=== PATIENT | female | born 1970 | race African-American/Black ===

== ENCOUNTER 2017-08-29 07:16 | Day surgery (SDC) | payer SELFPAY ==
[2017-08-29 07:29] LABS: Specific Gravity 1.025 (1.005-1.030)
[2017-08-29] MEDS ORDERED: CEFAZOLIN/SWI 1gm 1 GM/10 ML SYR ONE (07:48)
[2017-08-29] MEDS ORDERED: Ringers Lactate 1,000 ML IV ONE ×2 (07:48→09:48)
[2017-08-29] MEDS ORDERED: BUPIVACA 0.25%/EPI 0.0005%/PF 30 ML VIAL ONE (08:17)
[2017-08-29] MEDS ORDERED: LIDOCAINE 2% MPF 5 ML VIAL ONE (08:55)
[2017-08-29] MEDS ORDERED: PROPOFOL 200 MG/20 ML VIAL IV ONE (08:55)
[2017-08-29] MEDS ORDERED: MIDAZOLAM HCL 2 MG/2 ML INJ ONE (08:55)
[2017-08-29] MEDS ORDERED: DIPHENHYDRAMINE 50 MG/ML VIAL ONE (08:55)
[2017-08-29] MEDS ORDERED: KETOROLAC 30 MG/ML INJ ONE (08:55)
[2017-08-29] MEDS ORDERED: DEXAMETHASONE 10 MG/ML VIAL ONE (08:55)
[2017-08-29] MEDS ORDERED: ONDANSETRON 4 MG/2 ML VIAL ONE ×2 (08:55→14:02)
[2017-08-29] MEDS ORDERED: ROCURONIUM 50 MG/5 ML VIAL IV ONE (08:55)
[2017-08-29] MEDS ORDERED: FENTANYL CITR 100 MCG/2 ML ONE (08:55)
--- NOTE | 2017-08-29 10:03 | P.OP ---
Calender Roll Operator: ASCENCION YOUNG Preoperative diagnosis: Recurrent Ventral Hernia Postoperative diagnosis: Recurrent Ventral Hernia Primary procedure: Laparoscopic Ventral Hernia Repair with Mesh Anesthesia: GETA + Local Estimated blood loss: <20cc Specimen: None Findings: 8cm x 7cm hernia with ometum entrapped Complications: None Transferred to: Recovery Room Condition: Good
[2017-08-29] MEDS: MEPERIDINE HCL 50 MG/ML AMP ONE ×2 (10:08→10:13)
[2017-08-29] MEDS ORDERED: GLYCOPYRROLATE 0.2 MG/ML SYR ONE (10:12)
[2017-08-29] MEDS ORDERED: NEOSTIGMINE 1 MG/ML -5 ML SYRINGE ONE (10:15)
[2017-08-29] MEDS: MIDAZOLAM HCL 2 MG/2 ML INJ ONE ×2 (10:35→10:53)
[2017-08-29] MEDS ORDERED: MEPERIDINE HCL 25 MG/0.5 ML ONE ×2 (10:39→11:08)
[2017-08-29] MEDS ORDERED: HYDROCODONE/APAP 5/325 MG TAB ONE (14:02)
[2017-08-29 14:32] VITALS: BP 130/82; TEMP 99; O2SAT 98
--- NOTE | 2017-08-29 21:18 | OP ---
Date of Procedure: 08/29/2017 Surgeon: Dalton Perrin MD, Refinery Operator Light Ends Recovery: Kerline Ferguson. Preoperative Diagnosis: Recurrent ventral hernia, midline incisional type. Postoperative Diagnosis: Recurrent ventral hernia, midline incisional type. Procedure Performed: Laparoscopic ventral hernia repair with mesh. Anesthesia: General endotracheal plus local with 0.25% Marcaine. Estimated Blood Loss: 20 cc. Specimen: None. Findings: Approximately 8 cm x 7 cm hernia complex hernia defect, [place] cheese appearance with oment um entrapped, both superior and inferior to the umbilicus. Complications: None. Disposition: Transferred to recovery room in good condition. Procedure In Detail: After informed consent was obtained, the patient was brought to the operating r oom, prepped and draped in the usual sterile fashion. After adequate anesthesia was achieved, a left lateral quadrant incision was made after appropriately anesthetizing the skin. And a 5-mm, 0-degree optical trocar was introduced into the abdomen without evidence of complication. Insufflation was ob tained to 15 mmHg. At this time, there was no injury to vital structures upon entering into the abdo men. Additional trocar site was chosen in the left upper quadrant. This was similarly anesthetized and sharply incised and a 5-mm trocar was introduced in the abdomen without evidence of complication. The left lateral quadrant incision was then extended slightly and a 12-mm trocar was exchanged unde r direct visualization without evidence of complication. A LigaSure device was then used to take vickie n significant adhesions, which were present over the anterior abdominal wall. After completely mobil izing these adhesions, I did an extensive adhesiolysis for approximately 45 minutes. I placed an add itional trocar which was a 5 mm trocar, in the suprapubic region after appropriately anesthetizing th e skin. It was placed without evidence of complication. I then proceeded to take the omental attach ments out of the hernia sac using a hand over hand pass method until omental tissue was removed in it s entirety and ligated using the LigaSure device. No additional omental tissue was left within the h ernia sac and there was no evidence of bleeding at the end of the procedure in the omentum. After this was performed, I sized the mesh appropriately and opted for an approximately 16 cm round B amelia Ventralight ST mesh with Echo positioning System, which was placed through the lateral port and t hen positioned using a Laith-Auige suture passer to allow for minimal 5 cm of underlay circumfere ntially around. After this was positioned appropriately, the absorbable fixation system was used to secure this circumferentially around and the balloon system was then removed and passed out through t he lateral trocar. I then secured a double crown type fixation to the anterior abdominal wall using the absorbable fixation device with good approximation of the tissues. I then desufflated the abdome n and found the mesh to be in good position. I then removed the 12 mm trocar and closed the port usi ng a Laith-Augie suture passer with 0 Vicryl in an interrupted fashion with good approximation of tissues. I then completely desufflated the abdomen under direct visualization and removed all troca rs. All incisions were then copiously irrigated and closed with a 4-0 Monocryl in a running fashion. Dermabond was placed over the top. The patient tolerated the procedure well without evidence of co mplication and transferred to the PACU in good condition. All counts were correct at the end of the case. NICHOLE/BRAXTON Voice ID: [id number] Report ID: [id number]
== END 2017-08-29 16:30 | disposition home or self-care (01) ==
LOC: OR 07:16
PROVIDERS: ATTEND Surgery
PROC: 0DNW4ZZ Release Peritoneum, Percutaneous Endoscopic Approach (ICD-10-PCS; 2017-08-29)
PROC: 0WUF4JZ Supplement Abdominal Wall with Synthetic Substitute, Percutaneous Endoscopic Approach (ICD-10-PCS; principal; 2017-08-29 08:30)
DX: K43.2 Incisional hernia without obstruction or gangrene (principal); K66.0 Peritoneal adhesions (postprocedural) (postinfection); F17.210 Nicotine dependence, cigarettes, uncomplicated
CPT/HCPCS: 81025; J0690; J1100; J2175; J2250; J2405; J2710; J3010

== ENCOUNTER 2017-08-30 15:05 | Observation (INO) | payer SELFPAY ==
[2017-08-30 16:00] LABS: Absolute Lymphocytes (CBC) 2.2 K/uL (0.7-4.9); Absolute Monocytes 1.1 K/uL (0.1-1.3); Absolute Neutrophil 6.7 K/uL (1.8-8.0); Basophils % 0.6 % (0-1.3); Eosinophils % 0.7 % (0-4.4); Hematocrit 36.2 % (36.0-45.0); Lymphocytes % 21.3 % (15.3-44.8); MCV 84.4 fL (80-100); MPV 8.5 fL (7.6-11.3); Monocytes % 10.8 % (3.3-12.3); RBC Red Blood Cell Count 4.29 M/uL (3.86-4.86)
[2017-08-30] MEDS ORDERED: NA CHLORIDE 0.9% 1,000 ML ONE (16:14)
[2017-08-30] MEDS ORDERED: FAMOTIDINE 20 MG/2 ML VIAL IV ONE (16:14)
[2017-08-30] MEDS ORDERED: MORPHINE 4 MG/ML SYR ONE (16:14)
[2017-08-30] MEDS ORDERED: ONDANSETRON 4 MG/2 ML VIAL ONE (16:14)
[2017-08-30 16:18] LABS: Glomerular Filtration Rate > 60 mL/min (>60)
[2017-08-30 16:20] LABS: Potassium 3.3 mEq/L (3.6-5.0)
[2017-08-30 16:26] LABS: Albumin 3.6 g/dL (3.2-5.5); Bilirubin Direct 0.1 mg/dL (0-0.2); Protein, Total 7.7 g/dL (6.0-8.3)
--- NOTE | 2017-08-30 16:28 | RAD REPORT ---
EXAM DESCRIPTION: RAD - Chest Single View - 08/30/2017 4:16 pm CLINICAL HISTORY: Cough COMPARISON: None. FINDINGS: Portable technique limits examination quality. Mild bilateral pulmonary opacities are noted, likely representing pulmonary edema. Pneumonia is a les s likely consideration. The heart is normal in size. No displaced fractures.
[2017-08-30 16:40] LABS: Bilirubin Total 0.5 mg/dL (0.3-1.2)
--- NOTE | 2017-08-30 18:24 | EKG ---
Test Date: 2017-08-30 Test Time: 17:33:16 Air Quality Consultant: MARI MEASUREMENT RESULTS: Intervals: Rate: 82 AR: 130 QRSD: 90 QT: 368 QTc: 429 [place]: P: 62 AR: 130 QRS: 54 T: 26 INTERPRETIVE STATEMENTS: Normal sinus rhythm Minimal voltage criteria for LVH, may be normal variant Nonspecific ST and T wave abnormality Abnormal ECG No previous ECG available for comparison Electronically Signed On 08-30-17 18:23:51 CDT by Reji Ugarte
--- NOTE | 2017-08-30 18:24 | EDPHYS ---
Physician Documentation [facility] Name: Jason House Age: 47 yrs Sex: Female : 1970 Arrival Date: 08/30/2017 Time: 15:17 Bed 13 Private MD: ED Physician Gabriel Cisse HPI: 08/30 15:38 This 47 yrs old Black Female presents to ER via EMS with complaints of Hernia repair cp site pain. 15:38 The patient presents with abdominal pain that is diffuse. cp 15:38 Onset: The symptoms/episode began/occurred today. The symptoms do not radiate. cp Associated signs and symptoms: Pertinent positives: nausea, Pertinent negatives: anorexia, blood in stools, chest pain, constipation, diarrhea, dysuria, fever, vomiting. The symptoms are described as constant. Modifying factors: the symptoms are aggravated by pressure. Patient reports having hernia repair surgery by DR Perrin yesterday. OPERATION SPECIALIST: 15:22 LMP 08/18/2017 jl7 Historical: - Allergies: 15:22 No Known Allergies; jl7 - Home Meds: 15:22 [place] 5-325 mg Oral tab [Active]; jl7 - PMHx: 15:22 None; jl7 - PSHx: 15:22 Hernia repair; jl7 - Immunization history:: Adult Immunizations not up to date. - Social history:: Smoking status: Patient uses tobacco products, smokes one-half pack cigarettes per day, Patient uses alcohol, only on a social basis. street drugs, marijuana. ROS: 15:43 Constitutional: Positive for poor PO intake, Negative for body aches, chills, fever. cp 15:43 Eyes: Negative for injury, pain, redness, and discharge. cp 15:43 ENT: Negative for drainage from ear(s), ear pain, sore throat, difficulty swallowing, difficulty handling secretions. 15:43 Cardiovascular: Negative for chest pain, edema, palpitations. 15:43 Respiratory: Positive for cough, Negative for shortness of breath, wheezing. 15:43 Abdomen/GI: Positive for abdominal pain, nausea, Negative for vomiting, diarrhea, constipation, black/tarry stool, rectal bleeding. 15:43 Back: Negative for pain at rest, pain with movement, radiated pain. 15:43 Skin: Negative for cellulitis, rash. 15:43 Neuro: Negative for altered mental status, headache, weakness. 15:43 All other systems are negative. Exam: 15:50 Constitutional: The patient appears in no acute distress, alert, awake, non-toxic, well cp developed, well nourished, uncomfortable. 15:50 Head/Face: Normocephalic, atraumatic. cp 15:50 Eyes: Periorbital structures: appear normal, Pupils: equal, round, and reactive to light and accomodation, Extraocular movements: intact throughout, Conjunctiva: normal, no exudate, no injection, Sclera: no appreciated abnormality, Lids and lashes: appear normal, bilaterally. 15:50 ENT: External ear(s): are unremarkable, Ear canal(s): are normal, clear, TM's: dullness, bilaterally, Nose: is normal, Mouth: Lips: dry, Oral mucosa: dry, Posterior pharynx: Airway: no evidence of obstruction, patent, Uvula: midline, swelling, is not appreciated, erythema, is not appreciated, exudate, is not appreciated, Voice: is normal. 15:50 Neck: ROM/movement: is normal, is supple, without pain, no range of motions limitations, no nuchal rigidity. 15:50 Chest/axilla: Inspection: normal, Palpation: is normal, no crepitus, no tenderness. 15:50 Cardiovascular: Rate: normal, Rhythm: regular, Edema: is not appreciated, JVD: is not appreciated. 15:50 Respiratory: the patient does not display signs of respiratory distress, Respirations: normal, no use of accessory muscles, no retractions, no splinting, no tachypnea, labored breathing, is not present, Breath sounds: are clear throughout, no decreased breath sounds, no stridor, no wheezing. 15:50 Abdomen/GI: Inspection: obese Bowel sounds: active, all quadrants, Palpation: soft, in all quadrants, severe abdominal tenderness, in all quadrants, rebound tenderness, is not appreciated, voluntary guarding, is elicited in all quadrants. 15:50 Back: pain, is absent, ROM is normal. 15:50 Musculoskeletal/extremity: Exam is negative for calf tenderness, decreased range of motion, injury. 15:50 Skin: cellulitis, is not appreciated, no rash present. 15:50 Neuro: Orientation: to person, place \T\ time. Mentation: lucid, able to follow commands, Cerebellar function: is grossly normal, Motor: moves all fours, strength is normal, Sensation: is normal. 17:38 ECG was reviewed by the Attending Physician. Vital Signs: 15:22 BP 126 / 81; Pulse 88; Resp 16 S; Temp 99.8(O); Pulse Ox 94% on R/A; Weight 90.72 kg jl7 (R); Height 5 ft. 3 in. (160.02 cm) (R); Pain 10/10; 15:27 BP 127 / 77; Pulse 94; Resp 18; Pulse Ox 97% on 2 lpm NC; jl7 16:47 BP 119 / 78; Pulse 72; Resp 16; Pulse Ox 100% on 2 lpm NC; 5 17:45 BP 107 / 81; Pulse 79; Resp 16 S; Pulse Ox 99% on R/A; jl7 19:14 BP 113 / 79; Pulse 83; Resp 18; Pulse Ox 96% on R/A; aa1 20:30 BP 117 / 73; Pulse 79; Resp 18; Temp 98.8(TE); Pulse Ox 98% on R/A; Pain 0/10; aa1 15:22 Body Mass Index 35.43 (90.72 kg, 160.02 cm) 7 MDM: 15:23 Patient medically screened. 16:28 Physician consultation: Dalton Perrin MD was called at 16:28, was contacted at 16:28, regarding patient's condition, if pain can be controlled patient may be discharged to home, otherwise admit with consult to DR Hatch for pain control. 18:30 Data reviewed: vital signs, nurses notes, lab test result(s). 18:32 Physician consultation: Shaggy Hatch MD was contacted at 18:25, regarding admission, to the telemetry unit. patient's condition, wants morphine 4 mg q 2 hrs, [place] 7.5 mg q 4 hrs prn breakthrough pain and Zofran 4 mg q 6 hrs. 08/30 15:22 Order name: Amylase, Serum; Complete Time: 16:50 08/30 15:22 Order name: Basic Metabolic Panel; Complete Time: 16:50 08/30 16:50 Interpretation: Normal except: K 3.3; GFR 88. 08/30 15:22 Order name: CBC with Diff; Complete Time: 16:07 cp 04/ 16:07 Interpretation: Normal except: HGB 11.6; RDW 16.0. cp 04/ 15:22 Order name: Creatinine for Radiology; Complete Time: 16:23 cp 04/ 16:23 Interpretation: Reviewed. cp 04 15:22 Order name: Hepatic Function; Complete Time: 16:50 cp 04/ 16:51 Interpretation: Normal except: GLOB 4.1; A/G 0.9. cp 04 15:22 Order name: Lipase; Complete Time: 16:50 cp 04/ 16:23 Interpretation: LIP 17; Reviewed. cp 04 15:22 Order name: Urine Microscopic Only cp 08/30 16:31 Order name: BNP cp 08/30 18:32 Order name: Basic Metabolic Panel EDMS 08/30 18:32 Order name: Basic Metabolic Panel EDMS 08/30 18:32 Order name: CBC with Automated Diff EDMS 08/30 18:32 Order name: CBC with Automated Diff EDMS 08/30 18:32 Order name: Lipase EDMS 08/30 18:32 Order name: Lipase EDMS 08/30 16:01 Order name: CXR XRAY; Complete Time: 16:30 cp 08/30 16:31 Order name: EKG; Complete Time: 16:31 cp 08/30 18:32 Order name: Liver (Hepatic) Function EDMS 08/30 18:32 Order name: Liver (Hepatic) Function EDMS 08/30 18:35 Order name: Diet - Advance as Tolerated EDMS 08/30 18:54 Order name: Urine Dipstick--Ancillary (enter results) ag 08/30 18:54 Order name: Urine --Ancillary (enter results) ag 08/30 19:08 Order name: Urine --Ancillary EDMS 08/30 19:08 Order name: Urine Dipstick-Ancillary EDMS 08/30 15:22 Order name: Urine Test (obtain specimen); Complete Time: 19:04 cp 08/30 15:22 Order name: IV Saline Lock; Complete Time: 18:24 cp 08/30 15:22 Order name: Labs collected and sent; Complete Time: 18:24 cp 08/30 15:22 Order name: Urine Dipstick-Ancillary (obtain specimen); Complete Time: 19:04 cp 08/30 16:31 Order name: EKG - Nurse/Tech; Complete Time: 18:19 cp EC:38 Rate is 82 beats/min. Rhythm is regular. DC interval is normal. QRS interval is normal. cp QT interval is normal. T waves are Inverted in lead III. Interpreted by me. Reviewed by me. Administered Medications: 16:20 Drug: NS 0.9% 1000 ml Route: IV; Rate: 1 bolus; Site: left antecubital; ss 18:17 Follow up: IV Status: Completed infusion jl7 16:22 Drug: Zofran 4 mg Route: IVP; Site: left antecubital; ss 18:17 Follow up: Response: No adverse reaction jl7 16:25 Drug: morphine 4 mg Route: IVP; Site: left antecubital; ss 18:17 Follow up: Response: No adverse reaction jl7 16:27 Drug: Pepcid 20 mg Route: IVP; Site: left antecubital; ss 18:17 Follow up: Response: No adverse reaction jl7 18:07 Not Given (Physician Discretion): Hydrocodone-Acetaminophen (7.5 mg-325 mg) 1 tabs PO cp once 18:16 Drug: Tylenol #3 (300 mg-30 mg) 2 tabs Route: PO; jl7 19:05 Follow up: Response: No adverse reaction jl7 20:10 Drug: K-Lyte Effervescent Tablet 25 mEq Route: PO; aa1 20:39 Follow up: Response: No adverse reaction aa1 Disposition: 08/30/17 18:23 Hospitalization ordered by Shaggy Hatch for Observation. Preliminary diagnosis is Unspecified abdominal pain - Post Surgery, intractable. - Bed requested for Telemetry/MedSurg (observation). - Status is Observation. aa1 - Condition is Stable. - Problem is new. - Symptoms are unchanged. UTI on Admission? No Addendum: 09/02/2017 08:35 Co-signature as Attending Physician, Gabriel Cisse MD I agree with the assessment and c felton plan of care. Signatures: Dispatcher [employer] Zoila Amaya RN RN kl Kern, Alissa, RN RN aa1 Gabriel Cisse MD MD cha Smirch, Shelby, RN RN ss Page, Corey, PA PA Giovanna Zabala RN RN jl7 Corrections: (The following items were deleted from the chart) 08/30 16:51 16:23 Normal except: K 3.3. cp cp
--- NOTE | 2017-08-30 18:24 | ER ---
Nurse's Notes [facility] Name: Jason House Age: 47 yrs Sex: Female : 1970 Arrival Date: 08/30/2017 Time: 15:17 Bed 13 Private MD: Diagnosis: Unspecified abdominal pain-Post Surgery, intractable Presentation: 08/30 15:18 Presenting complaint: EMS states: She was discharged yesterday from having 3 hernias jl7 repaired, she's having increased site pain. Also c/o increased productive cough since this morning. Transition of care: patient was not received from another setting of care. Onset of symptoms was August 29, 2017. Care prior to arrival: Medication(s) given: Fentanyl 100 mcg IM. 15:18 Method Of Arrival: EMS: [facility] jl7 15:18 Acuity: [facility] 3 jl7 Triage Assessment: 15:24 General: Appears in no apparent distress. uncomfortable, Behavior is calm, cooperative, jl7 appropriate for age. Pain: Complains of pain in umbilical area, right upper quadrant, right lower quadrant and left lower quadrant Pain currently is 10 out of 10 on a pain scale. Pain began 1 day ago. Is continuous. EENT: No signs and/or symptoms were reported regarding the EENT system. Neuro: Level of Consciousness is awake, alert, obeys commands, Oriented to person, place, time, situation. Cardiovascular: Heart tones S1 S2 present Patient's skin is warm and dry. Respiratory: Reports cough that is productive, since this morning Airway is patent Respiratory effort is even, unlabored, Respiratory pattern is regular, symmetrical, Breath sounds are coarse bilaterally. GI: Abdomen is round non-distended, Bowel sounds present X 4 quads. Abd is soft X 4 quads Abd is non tender in right upper quadrant. : No signs and/or symptoms were reported regarding the genitourinary system. Derm: Skin is dry, Skin is normal, Skin temperature is warm. Musculoskeletal: No signs and/or symptoms reported regarding the musculoskeletal system. 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 - Social history:: Smoking status: Patient uses tobacco products, smokes one-half pack cigarettes per day, Patient uses alcohol, only on a social basis. street drugs, marijuana. Screenin:28 Abuse screen: Denies threats or abuse. Denies injuries from another. Nutritional jl7 screening: No deficits noted. Tuberculosis screening: No symptoms or risk factors identified. Fall Risk None identified. Assessment: 15:27 General: See triage assessment. jl7 16:30 Reassessment: No changes from previously documented assessment. Patient and/or family jl7 updated on plan of care and expected duration. Pain level reassessed. Patient is alert, oriented x 3, equal unlabored respirations, skin warm/dry/pink. 18:15 Reassessment: Pt unable to get out of bed and ambulate to the bathroom. Provider jl7 notified. 19:14 Reassessment: Patient appears in no apparent distress at this time. Patient and/or aa1 family updated on plan of care and expected duration. Pain level reassessed. Patient is alert, oriented x 3, equal unlabored respirations, skin warm/dry/pink. Awaiting bed assignment. Pt eating [employer], family at bedside. 20:08 Reassessment: Patient appears in no apparent distress at this time. Patient and/or aa1 family updated on plan of care and expected duration. Pain level reassessed. Patient is alert, oriented x 3, equal unlabored respirations, skin warm/dry/pink. Attempted to call report to 4th floor, was told nurse is unavailable and will call back. 20:30 Reassessment: Patient appears in no apparent distress at this time. Patient is alert, aa1 oriented x 3, equal unlabored respirations, skin warm/dry/pink. Report given to Maribeth on 4th floor. Vital Signs: 15:22 BP 126 / 81; Pulse 88; Resp 16 S; Temp 99.8(O); Pulse Ox 94% on R/A; Weight 90.72 kg jl7 (R); Height 5 ft. 3 in. (160.02 cm) (R); Pain 10/10; 15:27 BP 127 / 77; Pulse 94; Resp 18; Pulse Ox 97% on 2 lpm NC; jl7 16:47 BP 119 / 78; Pulse 72; Resp 16; Pulse Ox 100% on 2 lpm NC; mh5 17:45 BP 107 / 81; Pulse 79; Resp 16 S; Pulse Ox 99% on R/A; jl7 19:14 BP 113 / 79; Pulse 83; Resp 18; Pulse Ox 96% on R/A; aa1 20:30 BP 117 / 73; Pulse 79; Resp 18; Temp 98.8(TE); Pulse Ox 98% on R/A; Pain 0/10; aa1 15:22 Body Mass Index 35.43 (90.72 kg, 160.02 cm) 7 ED Course: 15:17 Patient arrived in ED. jl7 15:21 Gabriel Vides PA is PHCP. cp 15:21 Gabriel Cisse MD is Attending Physician. cp 15:21 Triage completed. 7 15:22 Arm band placed on right wrist. 7 15:28 Patient has correct armband on for positive identification. Bed in low position. Call [facility] light in reach. Side rails up X2. Pulse ox on. NIBP on. 15:29 Giovanna Moreno RN is Primary Nurse. [facility] 16:14 CXR XRAY In Process Unspecified. EDMS 16:14 X-ray completed. Portable x-ray completed in exam room. Patient tolerated procedure kc2 well. 18:22 Shaggy Hatch MD is Hospitalizing Provider. cp 19:04 Urine --Ancillary (enter results) Sent. [facility] 19:04 Urine Dipstick--Ancillary (enter results) Sent. [facility] 19:04 Urine collected: clean catch specimen, cloudy. [facility] 19:18 Report given to LATRICIA Santoro. 7 20:10 No provider procedures requiring assistance completed. Patient admitted, IV remains in aa1 place. Administered Medications: 16:20 Drug: NS 0.9% 1000 ml Route: IV; Rate: 1 bolus; Site: left antecubital; ss 18:17 Follow up: IV Status: Completed infusion [facility] 16:22 Drug: Zofran 4 mg Route: IVP; Site: left antecubital; ss 18:17 Follow up: Response: No adverse reaction 7 16:25 Drug: morphine 4 mg Route: IVP; Site: left antecubital; ss 18:17 Follow up: Response: No adverse reaction [facility] 16:27 Drug: Pepcid 20 mg Route: IVP; Site: left antecubital; 18:17 Follow up: Response: No adverse reaction jl7 18:07 Not Given (Physician Discretion): Hydrocodone-Acetaminophen (7.5 mg-325 mg) 1 tabs PO cp once 18:16 Drug: Tylenol #3 (300 mg-30 mg) 2 tabs Route: PO; jl7 19:05 Follow up: Response: No adverse reaction jl7 20:10 Drug: K-Lyte Effervescent Tablet 25 mEq Route: PO; aa1 20:39 Follow up: Response: No adverse reaction aa1 Outcome: 18:23 Decision to Hospitalize by Provider. 20:38 Admitted to Med/surg accompanied by tech, family with patient, via stretcher, room 405, aa1 with chart, Report called to Maribeth 20:38 Condition: good 20:38 Discharge instructions given to patient, family, Instructed on the need for admit, Demonstrated understanding of instructions. 20:40 Patient left the ED. aa1 Signatures: Dispatcher [employer] EDMS Maude Escoto, RN RN aa1 Smita Lizarraga RN RN Gabriel Duran, Sandi Lyles cp [place] [id number] Giovanna Moreno, RN RN jl7
[2017-08-30] MEDS ORDERED: CODEINE 30MG/APAP 300MG TAB ONE (18:28)
[2017-08-30] MEDS ORDERED: ONDANSETRON 4 MG/2 ML VIAL IV PRN (18:29)
[2017-08-30 18:56] LABS: Urine Bacteria <20 /HPF (<20); Urine Culture Reflex Order REFLEXED; Urine Mucus NS /HPF (NONE SEEN); Urine RBC <5 /HPF (NONE SEEN)
[2017-08-30 18:57] LABS: Urine Trichomonas PRESENT (NONE SEEN)
[2017-08-30 19:08] LABS: Urine Blood TRACE (NEG); Urine Glucose NEGATIVE (NEG); Urine Protein NEGATIVE (NEG); Urine pH 6.5 (5.0-7.0)
[2017-08-30] MEDS ORDERED: POTASSIUM 25 MEQ EFFERV TAB ONE (20:32)
[2017-08-30] MEDS ORDERED: ZOLPIDEM TARTRATE 5 MG TABLET PO ONE (21:46)
[2017-08-30] MEDS: D5 0.45 NS 1,000 ML IV SCH (22:04)
[2017-08-31] MEDS: HYDROCODONE/APAP 7.5/325 MG TAB PO PRN ×3 (01:24→20:55)
[2017-08-31] MEDS: D5 0.45 NS 1,000 ML IV SCH ×4 (03:00→18:07)
[2017-08-31] MEDS: MORPHINE 4 MG/ML SYR IV PRN ×2 (04:16→11:03)
[2017-08-31 07:19] LABS: Absolute Lymphocytes (CBC) 2.1 K/uL (0.7-4.9); Absolute Monocytes 1.1 K/uL (0.1-1.3); Absolute Neutrophil 6.4 K/uL (1.8-8.0); Basophils % 0.5 % (0-1.3); Eosinophils % 0.7 % (0-4.4); Hematocrit 32.3 % (36.0-45.0); MCH 27.5 pg (27.0-35.0); MCV 85.5 fL (80-100); MPV 8.9 fL (7.6-11.3); Monocytes % 11.2 % (3.3-12.3); RBC Red Blood Cell Count 3.78 M/uL (3.86-4.86)
[2017-08-31 07:36] LABS: ALT/SGPT 11 IU/L (10-60); AST/SGOT 20 IU/L (10-42); Albumin 3.1 g/dL (3.2-5.5); Alkaline Phosphatase 51 IU/L (42-121); BUN Blood Urea Nitrogen 8 mg/dL (6-20); Bicarbonate 24 mEq/L (21-31); Bilirubin Direct 0.1 mg/dL (0-0.2); Bilirubin Total 0.4 mg/dL (0.3-1.2); Glomerular Filtration Rate > 90 mL/min (=/>90); Glucose Level 93 mg/dL (65-120); Lipase 14 U/L (22-51); Potassium 3.9 mEq/L (3.6-5.0); Protein, Total 6.4 g/dL (6.0-8.3); Sodium Level 134 mEq/L (135-145)
[2017-08-31] MEDS: metroNIDAZOLE 500 MG TABLET PO SCH ×2 (13:31→20:55)
--- NOTE | 2017-08-31 13:52 | RAD REPORT ---
EXAM DESCRIPTION: CTAbdomen Pelvis W Contrast - 08/31/2017 1:33 pm CLINICAL HISTORY: Abdominal pain. COMPARISON: 12/08/2009 TECHNIQUE: Biphasic CT imaging of the abdomen and pelvis was performed with 100 ml non-ionic IV cont rast. All CT scans are performed using dose optimization technique as appropriate and may include automated exposure control or mA/KV adjustment according to patient size. FINDINGS: Airspace opacities in both posterior lung bases, greater on the left with air bronchograms . This may represent atelectasis or developing infiltrate. The liver, spleen, pancreas, adrenal glands and kidneys are within normal limits. Cyst is present in superolateral right pole the kidney. No bowel obstruction, free air, free fluid or intra-abdominal/intrapelvic abscess. Skin thickening is noted along the anterior abdominal wall near the umbilicus. Several small foci of air present in the subcutaneous fat is region. Small air and fluid collections are present in the region just to the ri ght of midline in the subcutaneous fat measuring 3.4 x 2.4 cm, slightly superior to this smaller anna ections are present along the midline measuring 2.2 x 2.1 cm and to the right of midline measuring 1. 7 x 1.2 cm. Mild inflammatory changes are seen in the fat in this region. Intra-abdominal fat adjacent to this re gion is also mildly reticulated suggesting inflammation. The appendix is normal. No evidence of sign ificant lymphadenopathy. No suspicious bony findings. IMPRESSION: Skin thickening is present with subcutaneous fat reticulation in the midline anterior ab dominal subcutaneous soft tissues. Several small fluid and air collections are present in the region. These appear largely thin walled without avid rim enhancement. This is favored to represent findings secondary to recent surgical intervention in this region. However, if the patient displays clinical symptoms of infection, consider small developing subcutaneous abscesses. Bibasilar lung opacities with air bronchograms which may represent atelectasis or developing infiltra te/pneumonia.
--- NOTE | 2017-08-31 21:01 | HP ---
Date of Admission: 08/30/2017 Chief Complaint: Intractable pain following a hernia repair. History Of Present Illness: The patient is a 47-year-old female, who underwent a laparoscopic ventra l hernia repair on by Dr. Sarkar. She was discharged home with a Hebron, however she stated t hat her pain was not controlled on [place] and even though she was able to tolerate diet, she came to [facility] emergency room and was in severe pain and the ER staff could not control her pain with 1 dose of m orphine, therefore I was contacted and asked to admit the patient for parenteral pain management whic h we decided to do. Her labs were normal. She did not have any peritonitis and I discussed the deta ils of the surgery with Dr. Sarkar and stated that it was a straight forward hernia repair. There was no bowel involvement at all, so we admitted her for parenteral pain management. She is awake and al ert. She is asking for morphine every 2 hours. Although I have even give her Hebron 7.5 and her wei ls have remained stable. She is tolerating her clear liquids. No nausea or vomiting. No diarrhea o r constipation. No blood in her stool. No sore throat, runny nose, cough, headaches, or dizziness. No chest pain. Review of Systems: Otherwise unremarkable. Past Medical History: None. Past Surgical History: Recent ventral hernia repair. Allergies: NO ALLERGIES. SHE DOES SMOKE AND DRINKS ALCOHOL ON A SOCIAL BASIS. Physical Examination: Vital Signs: Stable. She is afebrile. General: She is awake, alert, orient x3. Head and Neck: Cranial nerves 2 through 12 grossly within normal limits. No neck masses. No JVD. Throat clear. Neck: Supple. Chest: Clear. Heart: S1, S2. Abdomen: Soft, diffuse mild tenderness but no peritonitis. No rebound, rigidity, or guarding. Has slightly diminished bowel sounds. The surgical wounds are healing well. There is no sign of infecti on. Extremities: Adequately perfused. Nontender. Neuro: Nonfocal. Laboratory Data: Her white count is 9.7. There is a no left shift. Chemistry reviewed, essentially within normal limits. Assessment: A 47-year-old female, status post hernia repair with pain requiring parenteral pain medi cation. Recommendations: We will admit the patient currently for pain medication. I will go ahead and get a CT of the abdomen and pelvis just to make sure there is no unforeseen complication following which w e will wean her IV pain medicines down and encourage her to take the oral pain medicines and encourag e ambulation, incentive spirometry, and we will make further recommendation after the CAT scan. IVY/BRAXTON Voice ID: [id number]
[2017-09-01] MEDS: D5 0.45 NS 1,000 ML IV SCH ×3 (00:52→08:22)
[2017-09-01] MEDS: HYDROCODONE/APAP 7.5/325 MG TAB PO PRN (05:39)
[2017-09-01 06:10] VITALS: BMI 36.3
[2017-09-01] MEDS: metroNIDAZOLE 500 MG TABLET PO SCH (08:21)
[2017-09-01 09:20] VITALS: O2SAT 93
[2017-09-01 11:43] VITALS: BP 100/67; TEMP 98.6
--- NOTE | 2017-09-02 04:22 | DS ---
Date of Discharge: 09/01/2017 Admitting Diagnosis: Status post ventral hernia repair with intractable pain. Discharge Diagnosis: Status post ventral hernia repair with intractable pain. Hospital Course: The patient is a 47-year-old female who, on underwent an uneventful laparo scopic hernia repair of the abdomen and postoperatively, she returned to the emergency room with incr easing pain. She was admitted for pain control yesterday morning. When I saw her, she was tender an d she was complaining still of pain despite parenteral pain management and therefore, we went ahead a nd obtained a CT of the abdomen and pelvis which did not show any acute findings. Some air-fluid in the subcu space which is normal after surgery. The patient's white count has remained normal. She i s tolerating diet. She has finally started ambulating last night and this morning, she is afebrile. Leukocytosis is normal. Her pain appears to be better controlled. Therefore, the patient was disch arged home. Disposition: Home. Condition: Stable. Discharge Instructions: Resume home medications and diet. Activity as tolerated. No heavy lifting. May shower. Pain medications as per Dr. Perrin's prescription, she already has and follow up with Dr. Perrin in 2-3 days. /MODL Voice ID: [id number] Report ID: [id number]
== END 2017-09-01 11:33 | disposition home or self-care (01) ==
LOC: ER 15:05 → ERHOLD 18:28 → 4TH 20:06
PROVIDERS: ADMIT Surgery; ATTEND Surgery
DX: G89.18 Other acute postprocedural pain (principal); F17.210 Nicotine dependence, cigarettes, uncomplicated
CPT/HCPCS: 36415; 71045; 74177; 80048; 80076; 81003; 81015; 81025; 82150; 83690; 83880; 85025; 87086; 87088; 93005; 96361; 96374; 96375; 99285; G0378; J2405; J7030; Q9967